=== PATIENT | male | born 1955 | race Caucasian/White ===

== ENCOUNTER 2021-08-03 09:07 | Outpatient (CLI) | payer OTHER, SELFPAY ==
--- NOTE | ~2021-08-03 | CT_ITS ---
EXAMINATION: CT abdomen pelvis w con DATE: 08/03/2021 10:02 INDICATION: Right lower quadrant abdominal pain for 3 weeks TECHNIQUE: Computed tomography (CT) of the abdomen and pelvis was performed with 100 cc Omnipaque 350 intravenous contrast. Automated exposure control and iterative reconstruction technique were employe d. Exam dose: 982.68 mGy-cm total exam DLP. COMPARISON: None. FINDINGS: The lung bases are clear of infiltrate or consolidation. Normal heart size. No pericardial or pleural effusion. Small sliding hiatal hernia. The liver, spleen, pancreas, and adrenal glands, bile ducts and pancreas are unremarkable. There are multiple bilateral renal cysts, including one larger left renal cysts measuring up to 5.5 c m. No urinary tract calculus or hydroureteronephrosis. Normal caliber and extensive calcification of the abdominal aorta. There is prominent calcification o f the renal arteries. There is extensive calcification of the iliac and femoral arteries. No intraperitoneal or retroperitoneal or pelvic mass lesion or adenopathy or ascites. Mild prostate enlargement and calcification. Moderate diffuse thickening of the urinary bladder wall, possibly due in part to relative evacuation. There is an irregular abscess cavity measuring up to 2.3 x 3.4 x 3.8 cm dimension in the right lower quadrant and the appendiceal area, likely a ruptured appendiceal abscess. There is prominent surround ing inflammatory soft tissue fat infiltration. Mild bilateral fat containing inguinal hernias. Diffuse idiopathic skeletal hyperostosis of the lower thoracic spine. No suspicious osteolytic or ost eoblastic lesions. IMPRESSION: Ruptured appendiceal abscess in the right lower quadrant Dr. Jaime telephoned the report on 08/03/2021 at [address] Roberson's lead recreation assistant's voicemail. An attempt to contact the cnc router operator was not allowed. Reviewed, dictated and finalized at Location A. Reviewed, dictated and finalized at location B. IMPRESSION: Ruptured appendiceal abscess in the right lower quadrant Dr. Jaime telephoned the report on 08/03/2021 [address] Roberson's a ssistant's voicemail. An attempt to contact the cnc router operator was not allowed.
[2021-08-03 09:35] LABS: Estimated Glomerular Filt Rate > 60
== END 2021-08-03 09:08 | disposition home or self-care (01) ==
LOC: CHSIMG 09:10
PROVIDERS: PCP Family Medicine; Visit Provider Family Medicine
DX: R10.31 Right lower quadrant pain (principal)
CPT/HCPCS: 74177; Q9967

== ENCOUNTER 2021-09-05 07:17 | Outpatient (CLI) | payer OTHER, SELFPAY ==
--- NOTE | ~2021-09-05 | CT_ITS ---
EXAMINATION: CT abdomen pelvis w con EXAM DATE: 09/05/2021 08:19 INDICATION: Perforated Appendicitis RLQ pain returned after appe abscess rupture 1mo ago. TECHNIQUE: Spiral CT of the abdomen and pelvis was performed following intravenous injection of 100 m L Omnipaque 350. Axial, coronal and sagittal images of the abdomen and pelvis were reviewed. The do se-length product (DLP) for this examination was 1034.47 mGy-cm. The exposure was tailored according to patient size (auto mA exposure control), and iterative reconstruction (ASIR) was used as addition al dose reduction technique. Comparison is made to prior examination from 08/03/2021. FINDINGS: There is pericecal pocket of fluid probably phlegmonous abscess measuring 2 x 4 cm (previou s dimensions 4.6 x 3.0 cm). This also appears to be contiguous to the tip of the appendix. The other portion of the appendix are unremarkable. The liver, spleen, adrenal glands and pancreas are unremarkable. Gallbladder is unremarkable. No bi liary obstruction. Portal and splenic veins are patent. Kidneys enhance symmetrically. There is no hydronephrosis. There is a 5.7 cm left renal cyst, multiple other smaller renal cysts bilaterally. The prostate is unremarkable. The bladder is unremarkable. There is no retroperitoneal or pelvic ly mphadenopathy. There is moderate scattered arteriosclerotic disease. The stomach and small bowel are unremarkable. There is expected amount of colonic stool. No free i ntraperitoneal gas. The heart is normal in size. There are no pericardial or pleural effusions. T he lung bases are unremarkable. There are no osteoblastic or osteolytic lesions identified. IMPRESSION: Interval decrease in size of abscess adjacent to appendix tip and cecum. Reviewed, dictated and finalized at location B. LEAD IMPRESSION: Interval decrease in size of abscess adjacent to appendix tip and c ecum.
[2021-09-05 07:41] LABS: Estimated Glomerular Filt Rate > 60
== END 2021-09-05 07:18 | disposition home or self-care (01) ==
LOC: CHSIMG 07:18
PROVIDERS: PCP Family Medicine
DX: K35.32 Acute appendicitis with perforation, localized peritonitis, and gangrene, without abscess (principal)
CPT/HCPCS: 74177; Q9967

== ENCOUNTER 2021-11-16 07:23 | Outpatient (CLI) | payer OTHER, SELFPAY ==
--- NOTE | ~2021-11-16 | CT_ITS ---
EXAMINATION: CT abdomen pelvis w con EXAM DATE: 11/16/2021 09:08 INDICATION: Abd. Pain, Appendix Abscess, Perforated Appendicitis hx appe perforation/abscess 06/2021, new RLQ pain x5 days . TECHNIQUE: Spiral CT of the abdomen and pelvis was performed following intravenous injection of 100 m L Omnipaque 350. Axial, coronal and sagittal images of the abdomen and pelvis were reviewed. The do se-length product (DLP) for this examination was 1105.53 mGy-cm. The exposure was tailored according to patient size (auto mA exposure control), and iterative reconstruction (ASIR) was used as addition al dose reduction technique. Comparison is made to prior examination from 09/05/2021. FINDINGS: Interval increase in size of right lower quadrant abscess compared to prior study, may have multiple loculations. Region measures about 6 x 3 cm, is adjacent to the appendix tip and also now c ontiguous to the bladder. There is moderate bladder wall thickening, similar to previous examination. The liver, spleen, adrenal glands and pancreas are unremarkable. Gallbladder is unremarkable. No bi liary obstruction. Portal and splenic veins are patent. Kidneys enhance symmetrically. There is no hydronephrosis. Scattered renal cysts, largest in the left kidney measuring 5 cm. The prostate is u nremarkable. There is no retroperitoneal or pelvic lymphadenopathy. There is moderate scattered ar teriosclerotic disease. Small bilateral inguinal fat-containing hernias. The stomach and small bowel are unremarkable. There is expected amount of colonic stool. No free i ntraperitoneal gas. The heart is normal in size. There are no pericardial or pleural effusions. T he lung bases are unremarkable. There are no osteoblastic or osteolytic lesions identified. IMPRESSION: Increase in size of right lower quadrant abscess which could be from perforated tip appen dicitis. Reviewed, dictated and finalized at location A. ANALYST REPORT WRITER IMPRESSION: Increase in size of right lower quadrant abscess which could be fro m perforated tip appendicitis.
[2021-11-16 07:37] LABS: Basophils Absolute Auto 0.07 K/mm3 (0.00-0.10); Basophils Percent Auto 0.5 % (0.0-1.0); Eosinophils Absolute Auto 0.11 K/mm3 (0.02-0.50); Eosinophils Percent Auto 0.7 % (1.0-6.0); Hematocrit 44.6 % (40.0-54.0); Hemoglobin 14.6 g/dL (14.0-18.0); Immature Granulocyte Absolute 0.07 K/mm3 (0.00-0.00); Immature Granulocyte Percent A 0.5 % (0.0-0.0); Lymphocytes Absolute Auto 2.26 K/mm3 (1.10-4.50); Lymphocytes Percent Auto 14.8 % (18.0-42.0); Mean Corpuscular HGB Conc 32.7 g/dL (32.0-36.0); Mean Corpuscular Hemoglobin 29.3 pg (27.0-31.0); Mean Corpuscular Volume 89.6 fL (78.0-102.0); Mean Platelet Volume 9.1 fl (8.7-11.0); Monocytes Absolute Auto 1.16 K/mm3 (0.10-0.90); Monocytes Percent Auto 7.6 % (2.0-11.0); Neutrophils Absolute Auto 11.7 K/mm3 (1.7-7.2); Neutrophils Percent Auto 75.9 % (50.0-70.0); Platelet Count Result 291 K/mm3 (150-420); Red Blood Count 4.98 M/mm3 (4.70-6.10); Red Cell Distribution Width 14.1 % (11.6-14.4); White Blood Count 15.3 K/mm3 (4.8-10.8)
[2021-11-16 07:50] LABS: Estimated Glomerular Filt Rate > 60
== END 2021-11-16 07:24 | disposition home or self-care (01) ==
LOC: CHSIMG 07:26
PROVIDERS: PCP Family Medicine
DX: R10.9 Unspecified abdominal pain (principal); K35.33 Acute appendicitis with perforation, localized peritonitis, and gangrene, with abscess; K35.32 Acute appendicitis with perforation, localized peritonitis, and gangrene, without abscess
CPT/HCPCS: 36415; 74177; 85025; Q9967

== ENCOUNTER 2023-01-03 15:04 | Outpatient (CLI) | payer OTHER, SELFPAY ==
[2023-01-03 15:17] LABS: Hematocrit 43.5 % (37.0-46.0); Hemoglobin 14.2 g/dL (12.4-15.3); Mean Corpuscular HGB Conc 32.6 g/dL (32.0-36.0); Mean Platelet Volume 9.1 fl (8.7-11.0); Platelet Count Result 233 K/mm3 (150-420); Red Blood Count 4.73 M/mm3 (4.70-6.10); Red Cell Distribution Width 13.6 % (11.6-14.4); White Blood Count 10.1 K/mm3 (4.8-10.8)
[2023-01-03 15:31] LABS: Prothrombin Time 10.7 Seconds (9.50-12.10)
[2023-01-03 16:04] LABS: Alanine Aminotransferase 29 U/L (16-63); Albumin Level 3.8 g/dL (3.4-5.0); Alkaline Phosphatase 40 U/L (46-116); Anion Gap 12 mmol/L (8-16); Aspartate Amino Transferase 15 U/L (15-37); Bilirubin,Total 0.5 mg/dL (0.00-1.00); Blood Urea Nitrogen 21 mg/dL (7-18); Carbon Dioxide 23 mmol/L (21-32); Chloride 101 mmol/L (98-108); Estimated Glomerular Filt Rate > 60; Glucose 111 mg/dL (70-99); Osmolality Calculated 286 mOsm/kg (285-295); Potassium 5.3 mmol/L (3.5-5.1); Sodium 136 mmol/L (136-145); Total Protein 7.4 g/dL (6.4-8.2)
[2023-01-03 16:23] LABS: CRP < 0.5 mg/dL (0.0-0.9)
[2023-01-03 16:28] LABS: Calcium 8.7 mg/dL (8.5-10.1)
== END 2023-01-03 15:05 | disposition home or self-care (01) ==
LOC: CHSLAB 15:05
PROVIDERS: PCP Family Medicine; Visit Provider Family Medicine
DX: R10.9 Unspecified abdominal pain (principal); R59.1 Generalized enlarged lymph nodes
CPT/HCPCS: 36415; 80053; 85027; 85610; 86140

== ENCOUNTER 2023-01-11 14:22 | Outpatient (CLI) | payer OTHER, SELFPAY ==
--- NOTE | ~2023-01-11 | US_ITS ---
EXAMINATION: US soft tissue head and neck DATE: 01/11/2023 14:43 INDICATION: Generalized enlarged lymph nodes. Episode of swelling of the left submandibular gland. TECHNIQUE: Multiple grayscale and Doppler ultrasound images of the bilateral submandibular regions we re obtained. COMPARISON: None FINDINGS: The submandibular glands appear normal and symmetric measuring 3.7 x 4.0 x 1.4 cm on the right and 3. 8 x 3.6 x 1.5 cm on the left. No pathologically enlarged lymphadenopathy or other abnormal masses or fluid collections. IMPRESSION: 1. Symmetric normal bilateral submandibular glands. Reviewed, dictated and finalized at location A.
== END 2023-01-11 14:23 | disposition home or self-care (01) ==
LOC: CHSIMG 14:24
PROVIDERS: PCP Family Medicine; Visit Provider Family Medicine
DX: R59.1 Generalized enlarged lymph nodes (principal)
CPT/HCPCS: 76536

== ENCOUNTER 2023-02-28 12:20 | Outpatient (CLI) | payer OTHER, SELFPAY ==
[2023-02-28 12:31] LABS: Appearance Urine Slightly Cloudy (Clear); Bilirubin Urine Negative (Negative); Blood Urine 3+ (Negative); Color Urine Light Yellow (Yellow); Glucose Urine UA Negative (Negative); Ketones Urine Negative (Negative); Leukocyte Esterase Ur 2+ (Negative); Nitrate Urine Positive (Negative); Protein Urine 2+ (Negative); Specific Grav Ur 1.025 (1.010-1.020); Urobilinogen Urine 0.2 mg/dL (0.2-1.0)
[2023-02-28 12:35] LABS: Hematocrit 42.2 % (37.0-46.0); Hemoglobin 13.5 g/dL (12.4-15.3); Mean Corpuscular Hemoglobin 30.1 pg (27.0-31.0); Mean Corpuscular Volume 94.2 fL (78.0-102.0); Mean Platelet Volume 9.2 fl (8.7-11.0); Platelet Count Result 263 K/mm3 (150-420); Red Blood Count 4.48 M/mm3 (4.70-6.10); White Blood Count 9.1 K/mm3 (4.8-10.8)
[2023-02-28 12:37] LABS: Add Urine Microscopic? YES; Bacteria Urine 2+ /hpf; RBC Urine 51-75 /hpf (0-2); Squamous Epithelial Cell Urine Occasional /hpf (Few)
[2023-02-28 13:19] LABS: Alanine Aminotransferase 26 U/L (16-63); Albumin Level 3.6 g/dL (3.4-5.0); Alkaline Phosphatase 38 U/L (46-116); Anion Gap 11 mmol/L (8-16); Aspartate Amino Transferase 13 U/L (15-37); Bilirubin,Total 0.2 mg/dL (0.00-1.00); Blood Urea Nitrogen 15 mg/dL (7-18); Calcium 8.9 mg/dL (8.5-10.1); Carbon Dioxide 25 mmol/L (21-32); Chloride 102 mmol/L (98-108); Estimated Glomerular Filt Rate > 60; Glucose 108 mg/dL (70-99); Osmolality Calculated 287 mOsm/kg (285-295); Sodium 138 mmol/L (136-145); Total Protein 7.4 g/dL (6.4-8.2); Uric Acid 4.9 mg/dL (3.5-7.2)
[2023-02-28 14:14] LABS: Hemoglobin A1C 5.9 % (<5.7)
== END 2023-02-28 12:21 | disposition home or self-care (01) ==
PROVIDERS: PCP Family Medicine; Visit Provider Nurse Practitioner Family
DX: R30.0 Dysuria (principal); E66.9 Obesity, unspecified
CPT/HCPCS: 36415; 80053; 81001; 83036; 84550; 85027

== ENCOUNTER 2023-03-06 12:53 | Outpatient (CLI) | payer OTHER, SELFPAY ==
--- NOTE | ~2023-03-06 | US_ITS ---
US renal BI 03/06/2023 13:17 Procedure: Realtime transabdominal ultrasound of the kidneys and bladder. Indication: UTI. Right renal mass. Comparison: No prior studies for comparison. Findings: Renal echotexture is normal bilaterally without hydronephrosis, contour deforming mass or r enal calculus. There are bilateral renal cyst measuring 1.9 cm on the right and 4.7 cm on the left. N o solid renal mass. The right kidney measures 12.1 cm and left kidney measures 11.3 cm. Bladder with in normal limits. Impression: 1: Bilateral renal cysts. Reviewed, dictated and finalized at location L. Impression: 1: Bilateral renal cysts.
== END 2023-03-06 12:54 | disposition home or self-care (01) ==
PROVIDERS: PCP Family Medicine; Visit Provider Nurse Practitioner Family
DX: R30.0 Dysuria (principal); N28.1 Cyst of kidney, acquired
CPT/HCPCS: 76775

== ENCOUNTER 2023-06-05 14:38 | Outpatient (CLI) | payer OTHER, SELFPAY ==
[2023-06-05 15:11] LABS: Hemoglobin A1C 5.1 % (<5.7)
== END 2023-06-05 14:39 | disposition home or self-care (01) ==
LOC: CHSLAB 14:40
PROVIDERS: PCP Family Medicine; Visit Provider Family Medicine
DX: E11.9 Type 2 diabetes mellitus without complications (principal)
CPT/HCPCS: 36415; 83036

== ENCOUNTER 2023-08-21 14:33 | Outpatient (CLI) | payer OTHER, SELFPAY ==
[2023-08-21 14:48] LABS: Basophils Absolute Auto 0.04 K/mm3 (0.00-0.10); Basophils Percent Auto 0.5 % (0.0-1.0); Eosinophils Absolute Auto 0.11 K/mm3 (0.02-0.50); Eosinophils Percent Auto 1.5 % (1.0-6.0); Hematocrit 42.2 % (37.0-46.0); Immature Granulocyte Absolute 0.03 K/mm3 (0.00-0.00); Immature Granulocyte Percent A 0.4 % (0.0-0.0); Mean Corpuscular HGB Conc 33.2 g/dL (32.0-36.0); Mean Corpuscular Hemoglobin 31.7 pg (27.0-31.0); Mean Corpuscular Volume 95.5 fL (78.0-102.0); Mean Platelet Volume 8.9 fl (8.7-11.0); Monocytes Absolute Auto 0.47 K/mm3 (0.10-0.90); Monocytes Percent Auto 6.3 % (2.0-11.0); Neutrophils Absolute Auto 4.8 K/mm3 (1.7-7.2); Neutrophils Percent Auto 63.3 % (50.0-70.0); Platelet Count Result 203 K/mm3 (150-420); Red Blood Count 4.42 M/mm3 (4.70-6.10); Red Cell Distribution Width 13.5 % (11.6-14.4); White Blood Count 7.5 K/mm3 (4.8-10.8)
[2023-08-21 15:14] LABS: Alanine Aminotransferase 30 U/L (16-63); Albumin Level 3.5 g/dL (3.4-5.0); Alkaline Phosphatase 34 U/L (46-116); Anion Gap 9 mmol/L (8-16); Aspartate Amino Transferase < 10 U/L (15-37); Bilirubin,Total 0.4 mg/dL (0.00-1.00); Blood Urea Nitrogen 17 mg/dL (7-18); Calcium 8.9 mg/dL (8.5-10.1); Carbon Dioxide 27 mmol/L (21-32); Chloride 103 mmol/L (98-108); Cholesterol 184 mg/dL (0-200); Estimated Glomerular Filt Rate > 60; Glucose 98 mg/dL (70-99); HDL Direct 50 mg/dL (40-60); LDL Cholesterol Calculated 114 mg/dL (<130); Osmolality Calculated 289 mOsm/kg (285-295); Potassium 4.9 mmol/L (3.5-5.1); Sodium 139 mmol/L (136-145); Total Protein 6.7 g/dL (6.4-8.2); Triglycerides 102 mg/dL (0-150)
== END 2023-08-21 14:34 | disposition home or self-care (01) ==
PROVIDERS: Nurse Practitioner Family; PCP Family Medicine; Visit Provider Family Medicine
DX: R73.03 Prediabetes (principal); I25.10 Atherosclerotic heart disease of native coronary artery without angina pectoris; G56.00 Carpal tunnel syndrome, unspecified upper limb
CPT/HCPCS: 36415; 80053; 80061; 83036; 85025

== ENCOUNTER 2023-10-24 13:03 | Outpatient (NON) | payer OTHER, SELFPAY ==
[2023-10-24 13:17] LABS: Appearance Urine Clear (Clear); Bilirubin Urine Negative (Negative); Blood Urine 2+ (Negative); Color Urine Light Yellow (Yellow); Glucose Urine UA Negative (Negative); Ketones Urine Negative (Negative); Leukocyte Esterase Ur Negative (Negative); Nitrate Urine Negative (Negative); Protein Urine Negative (Negative); Urobilinogen Urine 0.2 mg/dL (0.2-1.0)
[2023-10-24 13:24] LABS: Add Urine Microscopic? YES
[2023-10-24 13:25] LABS: Bacteria Urine Rare /hpf; Squamous Epithelial Cell Urine Occasional /hpf (Few); WBC Urine None seen /hpf (0-3)
== END 2023-10-24 13:04 | disposition home or self-care (01) ==
LOC: CHSLAB 13:04
PROVIDERS: Visit Provider Nurse Practitioner Family
DX: R39.9 Unspecified symptoms and signs involving the genitourinary system (principal)
CPT/HCPCS: 81001; 87086; 87088

== ENCOUNTER 2023-10-26 13:39 | Outpatient (CLI) | payer OTHER, SELFPAY ==
--- NOTE | ~2023-10-26 | CT_ITS ---
Non-contrast CT scan of the Abdomen and Pelvis Clinical indication: Hematuria Technique: 2.5 mm axial scans were obtained through the abdomen and pelvis without intravenous or or al contrast. Dose reduction technique was used on this scan by utilizing automated exposure control a nd iterative reconstruction technique. The dose-length product (DLP) was 1217.12 mGy-cm. COMPARISON: 11/16/2021 Findings: Images through the lung bases reveal no abnormalities. There is mild right hydroureteronephrosis. No left hydronephrosis. No radiopaque stones identified. S mall hyperdense right renal cyst present. Left renal cyst present. The liver, spleen, pancreas, gallbladder, and adrenals appear normal. There are atherosclerotic calci fications of the aorta. There is no evidence of bowel obstruction. Images through the pelvis were performed. There is no evidence of ascites or lymphadenopathy. Questio nable mild urinary bladder wall thickening. Prostate gland and seminal vesicles are unremarkable. Impression: Suspected mild urinary bladder wall thickening. Correlate for cystitis. Mild right hydroureteronephrosis. Correlate for recently passed stone. Reviewed, dictated and finalized at location . ND CUTTER Impression: Suspected mild urinary bladder wall thickening. Correlate for cystitis. Mild right hydroureteronephrosis. Correlate for recently passed stone.
== END 2023-10-26 13:40 | disposition home or self-care (01) ==
PROVIDERS: PCP Family Medicine; Visit Provider Nurse Practitioner Family
DX: R31.9 Hematuria, unspecified (principal); R39.9 Unspecified symptoms and signs involving the genitourinary system; N13.30 Unspecified hydronephrosis
CPT/HCPCS: 74176

== ENCOUNTER 2023-11-15 09:41 | Outpatient (CLI) | payer OTHER, SELFPAY ==
--- NOTE | ~2023-11-15 | US_ITS ---
US pelvic limited 11/15/2023 09:58 Indication: Evaluate for post void residual Procedure: Pelvic ultrasound utilizing transabdominal technique Comparison: No prior studies for comparison. Findings: Bladder is unremarkable without focal bladder wall thickening or mass. Prevoid volume is 1 44 cc. No post void residual. Impression: 1: Normal ultrasound of the bladder. No post void residual. Reviewed, dictated and finalized at location L. AR TEACHER Impression: 1: Normal ultrasound of the bladder. No post void residual.
== END 2023-11-15 09:42 | disposition home or self-care (01) ==
LOC: CHSIMG 09:43
PROVIDERS: PCP Family Medicine; Visit Provider Family Medicine
DX: R39.9 Unspecified symptoms and signs involving the genitourinary system (principal)
CPT/HCPCS: 76857

== ENCOUNTER 2023-12-12 09:16 | Outpatient (CLI) | payer OTHER, SELFPAY ==
--- NOTE | ~2023-12-12 | CT_ITS ---
EXAMINATION: CT abdomen pelvis wo/w con DATE: 12/12/2023 10:15 INDICATION: Penis pain for 4 weeks. TECHNIQUE: Computed tomography (CT) of the abdomen and pelvis was performed without and with intraven ous contrast using a total of 130 mL Omnipaque-350 intravenous contrast with a double-bolus technique for simultaneous opacification of the renal parenchyma and renal collecting system. Automated exposu re control and iterative reconstruction technique were employed. The dose-length product was 2283.36 mGy-cm. COMPARISON: CT abdomen and pelvis 10/26/2023 FINDINGS: The visualized portions of the lung bases demonstrate mild atelectasis. A calcified right lung nodule is consistent with old granulomatous disease. No pleural effusion. The heart size is normal. There a re coronary artery calcifications. No pericardial effusion. There are calcifications of the aortic va lve. The liver, gallbladder, spleen, pancreas, and adrenal glands are normal. There is a 15 mm hemorr hagic cyst in right kidney. There are simple cysts in the kidneys measuring up to 5.2 cm on the left. There is no urolithiasis. There is mild right hydronephrosis and hydroureter. The ureters are well o pacified. The bladder is distended. The prostate is mildly enlarged. The appendix is visualized. Ther e is calcified atherosclerosis of the aorta and many of the other arteries. There are no pathological ly enlarged lymph nodes. There is no free intraperitoneal fluid. There is mild chronic anterior wedgi ng of T11 and T12 vertebral bodies. There is prominent fat in the inguinal canals that may be hernias . There is moderate lumbar spondylosis. IMPRESSION: 1. Stable mild right hydronephrosis and hydroureter. 2. Prominent fat in the inguinal canals that may be hernias. Reviewed, dictated and finalized at location E. ING LURE ASSEMBLER
[2023-12-12 09:40] LABS: Estimated Glomerular Filt Rate > 60
== END 2023-12-12 09:17 | disposition home or self-care (01) ==
LOC: CHSIMG 09:17
PROVIDERS: PCP Family Medicine
DX: R31.9 Hematuria, unspecified (principal); N13.30 Unspecified hydronephrosis; N13.4 Hydroureter
CPT/HCPCS: 74178; Q9967

== ENCOUNTER 2023-12-24 10:35 | Outpatient (CLI) | payer OTHER, SELFPAY ==
--- NOTE | ~2023-12-24 | NM_ITS ---
EXAMINATION: BAILEY ring renal scan DATE: 12/24/2023 13:37 INDICATION: Right hydronephrosis TECHNIQUE: 9.3 mCi Tc-99m MAG3 was administered IV. 40 mg furosemide was administered IV immediately afterward. The patient was scanned in the supine position. A posterior abdominal radionuclide angiog kieran was obtained. A subsequent time course of static images of the kidneys, ureters, and bladder was obtained. COMPARISON: None FINDINGS: The posterior abdominal radionuclide angiogram and sequential static images show normal size, positio n, and morphology of the kidneys. Peak renal parenchymal uptake was 2.4 min in left kidney and 3.4 mi n in right kidney (normal peak 3-5 minutes). The relative early renal uptake was 55% on the left and 35% on the right (<40% is abnormal). No abnormalities of the ureters or bladder are seen. T1/2 for clearance of activity from the left kidney and proximal collecting system was 7 minutes. T1/2 for clearance of activity from the right kidney and proximal collecting system was 10 minutes. Notes on interpretation: T1/2 <10 minutes is normal, 10-15 minutes is low grade obstruction of questi onable clinical significance, 15-20 minutes is partial obstruction that is likely clinically signific ant, >20 minutes is high grade obstruction. Note that false positives may be seen with supine positio [place], dehydration, severely dilated nonobstructed kidney, atonic collecting system, poor renal functi on, and chronic furosemide use. IMPRESSION: 1. Symmetric kidney function. 2. No delay in contrast clearance from the left kidney suggest fixed obstruction. 2. Activity clearance from the right kidney at the upper limits of normal, borderline for low-grade o bstruction of doubtful clinical significance. Reviewed, dictated and finalized at location A. PER BRUSH MAKER MACHINE IMPRESSION: 1. Symmetric kidney function. 2. No delay in contrast clearance from the left kidney suggest fixed obstructi on. 2. Activity clearance from the right kidney at the upper limits of normal, bord gerald for low-grade obstruction of doubtful clinical significance.
[2023-12-24 11:53] LABS: Prostate Specific Antigen 0.7 ng/mL (< OR = 4.0)
== END 2023-12-24 10:36 | disposition home or self-care (01) ==
LOC: CHSIMG 10:37
PROVIDERS: PCP Family Medicine
DX: N40.0 Benign prostatic hyperplasia without lower urinary tract symptoms (principal); N13.30 Unspecified hydronephrosis
CPT/HCPCS: 36415; 78708; 84153; A9562; J1940

== ENCOUNTER 2025-01-12 11:06 | Outpatient (CLI) | payer OTHER, SELFPAY ==
--- NOTE | ~2025-01-12 | XR_ITS ---
EXAMINATION: [id number] DATE: 01/12/2025 11:21 INDICATION: Left knee pain. TECHNIQUE: 2 views of left knee were obtained. COMPARISON: None. FINDINGS: There is varus angulation at the knee. No fracture. There is moderate osteoarthritis of med ial compartment and mild osteoarthritis of lateral and patellofemoral compartments. There is a small knee joint effusion. IMPRESSION: 1. Moderate left knee osteoarthritis. 2. Small left knee joint effusion. Reviewed, dictated and finalized at location A.
--- NOTE | ~2025-01-12 | XR_ITS ---
EXAMINATION: [id number] DATE: 01/12/2025 11:21 INDICATION: Right knee pain. TECHNIQUE: 2 views of right knee were obtained. COMPARISON: None. FINDINGS: Alignment is normal. No fracture. There is mild tricompartmental osteoarthritis. No knee tavo int effusion. IMPRESSION: 1. Mild right knee osteoarthritis. Reviewed, dictated and finalized at location A.
--- OUTSIDE RECORDS SUMMARY | 2025-01-12 13:13 | XMS_ITS | Clinical Summary ---
Author Organization [facility] Address [address] [place] [address] Care Team Providers Care Skidder Name Role Phone Pritesh Roberson DO Primary Care Provider Pritesh Roberson DO Unavailable No, Physician Unavailable Nahed Melendez MD Unavailable Allergies No known active allergies Medications lisinopriL (PRINIVIL,ZESTRIL ) 20 mg tablet Take 20 mg by mouth daily Active cilostazoL (PLETAL) 100 mg tabletIndications :Intermittent Claudication Take 100 mg by mouth daily Active atorvastatin (LIPITOR) 40 mg tablet Take 40 mg by mouth daily Active omeprazole (PriLOSEC) 40 mg capsule Take 40 mg by mouth daily Active aspirin 81 mg enteric coated tablet Take 1 tablet (81 mg total) by mouth daily 30 tablet 1 Active clopidogreL (PLAVIX) 75 mg tablet Take 1 tablet (75 mg total) by mouth daily 30 tablet 1 Active metoprolol tartrate (LOPRESSOR) 25 mg immediate release tablet Take 0.5 tablets (12.5 mg total) by mouth 2 (two) times a day 30 tablet 1 Active nitroglycerin (NITROSTAT) 0.[address] 1 tablet (0.4 mg total) under the tongue every 5 (five) minutes as needed for chest pain 90 tablet 1 Active tadalafiL (CIALIS) 20 mg tablet 1 Active Active Problems Problem Noted Date Diagnosed Date Coronary artery disease invo lving [place] coronary artery of [place] heart without angina pectoris 07/01/2021 Assessment & Plan (09/30/2021 4:08 PM CARRIER PACKER): No symptoms of myocardial ischemia. 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 Continue metoprolol 12.5 mg b.i.d.. Assessment & Plan (07/01/2021 1:02 PM CDT): Single-vessel coronary artery disease involving the right coronary artery. He is asymptomatic on medical therapy and has complied with instructions to stop smoking. He is doing well. He can continue exerting himself without limitations and I will see him again in three months. NSTEMI (non-ST elevated myocardial infarction) 0 05/28/2021 Assessment & Plan (05/31/2021 12:01 PM CDT): Initial non STEMI with subsequent procedural STEMI, all remarkably well tolerated. Echo Doppler looks good. No arrhythmias on telemetry. Will increase activity and if he has no exertional chest discomfort I am fine with his being discharged today on dual anti-platelet, beta-misty, statin, AB-inhibitor therapy, and sublingual nitroglycerin. Suspect he will need something for anxiety and a nicotine replacement as well. I will see him in the office in three weeks; he and know to call for an appointment. Primary hypertension 05/28/2021 Assessment & Plan (09/30/2021 4:09 PM CARRIER PACKER): Blood pressure is well controlled on lisinopril 20 mg daily and metoprolol 12.5 mg b.i.d., both of which he should continue. Assessment & Plan (07/01/2021 1:02 PM CDT): Blood pressure is adequately controlled on current regimen. No change was made. Assessment & Plan (05/29/2021 9:16 AM CDT): Blood pressure is adequately controlled on current regimen. No change was made. PAD (peripheral artery disease) 05/28/2021 Hyperlipidemia 05/28/2021 Assessment & Plan (09/30/2021 4:09 PM CARRIER PACKER): Continue atorvastatin 40 mg daily. Assessment & Plan (07/01/2021 1:02 PM CDT): Continue high-intensity statin therapy. Assessment & Plan (05/29/2021 9:16 AM CDT): On chronic lipid lowering therapy with good control. No changes made. Tobacco abuse 05/28/2021 Tachycardia 05/28/2021 Gastroesophageal reflux disease without esophagi tis 05/28/2021 Medical History Medical History Date Comments Hypertension Hyperlipidemia GERD (gastroesophageal reflux disease) PAD (peripheral artery disease) Tobacco abuse Family History Medical History Relation Name Comments Early Neg Hx Heart attack Neg Hx Heart disease Neg Hx Hyperlipidemia Neg Hx Hypertension Neg Hx Relation Name Status Comments Father of old age . No medical problems. Mother of old age . No medical problems. Social History Tobacco Use Types Packs/Day Years Used Date Smoking Tobacco: Former Cigarettes 1.5 50 0 06/28/1971 - 06/28/2021 Smokeless Tobacco: Never Tobacco Cessation:Ready to Q uit: No; Counseling Given: Yes Personal Safety Answer Date Recorded Getting School Help Needed Not on file 10/01 Sex and Gender Information Value Date Recorded Sex Assigned at Not on file Legal Sex Male 8:30 AM CARRIER PACKER Gender Identity Male 07/01/2021 12:16 PM CDT Sexual Orientation Not on file Obstetrics History Last Filed Vital Signs Vital Sign Reading Time Taken Comments Blood Pressure 112/64 09/30/2021 12:03 PM CARRIER PACKER Pulse 71 09/30/2021 12:03 PM CARRIER PACKER Temperature 36.7 C (98 F) 05/31/2021 12:40 PM CDT Respiratory Rate 18 05/31/2021 12:40 PM CDT Oxygen Saturation 98% 09/30/2021 12:03 PM CARRIER PACKER Inhaled Oxygen Concentration - - Weight 97.1 kg (214 lb) 09/30/2021 12:03 PM CARRIER PACKER Height 172.7 cm (5' 8 ) 09/30/2021 12:03 PM CARRIER PACKER Body Mass Index 32.54 09/30/2021 12:03 PM CARRIER PACKER Plan of Treatment Not on file Medical Devices Implanted Type Area Ground Crew Linesman Device Identifier Shelf Expiration Date Model / Serial / Lot [employer] [id number] Synergy Xd Monorail 3mm 16mm 144cm Delivery System 1 Access Port - [id number] - [id number] Implanted:Qty: 1 on 05/30/2021 by Alexander Odom MD at [facility] Stent N/A: Coronary [employer] 03/07/2023 [id number] / [id number] / [id number] Description:[facility] Insurance [employer] [id number] [employer] [id number] Advance Directives For more information, please contact: [phone] Documents on File Type Date Recorded Patient Bolt Labeler Expl anation ADVANCE DIRECTIVE 06/01/2021 12:21 PM Bess r of Instrument Technician Apprentice-Medical * Full Code (Latest Code Status on File) Date Activated Date Inactivated Comments 05/30/2021 9:33 AM 05/31/2021 6:47 PM * Full Code Date Activated Date Inactivated Comments 05/28/2021 6:56 PM 05/30/2021 9:33 AM Care Teams Skidder Relationship Specialty Start Date End Date Pritesh Roberson DO [address] [place] [address] PCP - General Family Medicine 06/01/21 Pritesh Roberson DO [address] [place] [address] Family Medicine 06/01/21 No, Physician 05/31/21 Nahed Melendez MD [address] [place] [address] Consulting Physician Cardiology 05/31/21
--- OUTSIDE RECORDS SUMMARY | 2025-01-12 13:13 | XMS_ITS | Encounter Summary ---
Author Organization [facility] Address [facility] [place] [address] Care Team Providers Care Medicaid Biller Name Role Phone Pritesh Roberson DO Primary Care Provider [phone] Zena Castillo MD Unavailable Unavailabl Mg Wills MD Unavailable [phone] Hillary Arnold MD Unavailable Encounter Details Date Type Department Care Team (Late Contact Info) Description 11/07/2021 MyChart Message Enc [facility] [address], [place] [address] Juana Lechuga, [address] [place] [address] Visit Follow Up Social History Tobacco Use Types Packs/Day Years Used Date Smoking Tobacco: Every Day Cigarettes 1 50 Smokeless Tobacco: Never Alcohol Use Standard Drinks/Week Comments Not Currently 0 (1 standard drink = 0.6 oz pur e alcohol) Sex and Gender Information Value Date Recorded Sex Assigned at Not on file Legal Sex Male 2:50 AM CDT Gender Identity Not on file Sexual Orientation Not on file COVID-19 Exposure Response Date Recorded In the last month, have you been in contact with someone who was confirmed or suspected to have Coronavirus / COVID-19? No / Unsure 11/09/2021 10:16 AM PATIENT SUPPORT REPRESENTATIVE documented as of this encounter Plan of Treatment Upcoming Encounters Date Type Department Care Team (Late Contact Info) Description 01/14/2025 11:15 AM CDT Office Visit [facility] [address] [facility] [address] [place] [address] Cheri Soto PA [address] [facility] [address] [place] [address] 09/02/2025 1:00 PM PATIENT SUPPORT REPRESENTATIVE Appointment [facility] [address] [place] [address] Hillary Arnold MD [address] [place] [address] 09/02/2025 2:00 PM PATIENT SUPPORT REPRESENTATIVE Appointment [facility] [address] [place] [address] Hillary Arnold MD [address] [place] [address] 09/10/2025 2:30 PM PATIENT SUPPORT REPRESENTATIVE Office Visit [facility] [address] Hillary Arnold MD [address] [place] [address] documented as of this encounter Visit Diagnoses Not on filedocumented in this encounter Care Teams Medicaid Biller Relationship Specialty Start Date End Date Pritesh Roberson DO [address] [place] [address] PCP - General FAMILY PRACTICE 12/22/20 Zena Castillo MD [address] [place] [address] Consulting Physician CARDIOVASCULAR DISEASE 01/02/22 Mg Childers MD [address] [place] [phone] Consulting Physician ORTHOPAEDIC SURGERY 08/09/23 Hillary Arnold MD [address] [place] [address] Consulting Physician CARDIOVASCULAR DISEASE 04/27/24 documented as of this encounter
--- OUTSIDE RECORDS SUMMARY | 2025-01-12 13:13 | XMS_ITS ---
Author Organization Unknown Address [id number] [place] [phone] Phone Care Team Providers Care Coroner Transport Technician Name Role Phone KENDALL ALVAREZ Attending Unavailable JARED LACEY Primary Unavailable Immunization Immunization Date Status Additional Notes Code Code System pneumococcal polysaccharide PPV23 10/01/2019 Completed 33 CVX Influenza, high-dose, trivalent, PF 09/08/2024 Completed 135 CVX Influenza, split virus, trivalent, preservative 08/22/2021 Completed 141 CVX Influenza, split virus, trivalent, preservative 08/18/2022 Completed 141 CVX Influenza, split virus, quadrivalent, PF 09/21/2020 Completed 150 CVX zoster recombinant 09/19/2021 Completed 187 CVX zoster recombinant 02/06/2022 Completed 187 CVX Influenza, adjuvanted, quadrivalent, PF 07/23/2023 Completed 205 CVX COVID-19, mRNA, LNP-S, PF, 3 0 mcg/0.3 mL dose 11/26/2020 Completed 208 CVX COVID-19, mRNA, LNP-S, PF, 3 0 mcg/0.3 mL dose 12/17/2020 Completed 208 CVX COVID-19, mRNA, LNP-S, PF, 3 0 mcg/0.3 mL dose 09/19/2021 Completed 208 CVX Pneumococcal conjugate PCV20 , polysaccharide [id number] conjugate, adjuvant, PF 08/23/2023 Completed 216 CVX COVID-19, mRNA, LNP-S, PF, 3 0 mcg/0.3 mL dose, wang-sucrose 02/06/2022 Completed 217 CVX COVID-19, mRNA, LNP-S, bivalent, PF, 30 mcg/0.3 mL dose 09/04/2022 Completed 300 CVX COVID-19, mRNA, LNP-S, PF, wang-sucrose, 30 mcg/0.3 mL 09/08/2024 Completed 309 CVX COVID-19, mRNA, LNP-S, PF, 5 0 mcg/0.5 mL 08/23/2023 Completed 312 CVX Social History Type Status Start Date End Date Code Code Syst em Smoking History Current every day smoker [id number] SNOMED CT Sex Male Medications Medication Start Date End Date Route Frequency Dose Code Code System Medication Instructions Home Meds Aspirin 325MG Oral Tablet, Enteric Coated 08/28/2023 Unknown ORAL ONCE A DAY 325 MILLIGRAMS [id number] RxNorm TAKE 325 MILLIGRAMS ORAL ONCE A DAY Atorvastatin Calcium 40MG Oral Tablet 08/28/2023 Unknown ORAL ONCE A DAY 40 MILLIGRAMS 003413 RxNorm TAKE 40 MILLIGRAMS ORAL ONCE A DAY Cilostazol 100MG Oral Tablet 08/28/2023 Unknown ORAL TWICE A DAY 100 MILLIGRAMS 909624 RxNorm TAKE 100 MILLIGRAMS ORAL TWICE A DAY Lisinopril 20MG Oral Tablet 08/28/2023 Unknown ORAL ONCE A DAY 20 MILLIGRAMS 135282 RxNorm TAKE 20 MILLIGRAMS ORAL ONCE A DAY Metamucil Oral Capsule 08/28/2023 Unknown ORAL 1 unit(s) RxNorm TAKE 1 EACH ORAL Metoprolol Tartrate 25MG Oral Tablet 08/28/2023 Unknown ORAL TWICE A DAY 25 MILLIGRAMS 771355 RxNorm TAKE 25 MILLIGRAMS ORAL TWICE A DAY Omeprazole 40MG Oral Capsule, Delayed Release 08/28/2023 Unknown ORAL ONCE A DAY 40 MILLIGRAMS 889907 RxNorm TAKE 40 MILLIGRAMS ORAL ONCE A DAY Viagra 100MG Oral Tablet 08/28/2023 Unknown ORAL NEEDED 100 MILLIGRAMS 132707 RxNorm TAKE 100 MILLIGRAMS ORAL NEEDED Hospital Discharge Instructions Should you have any questions prior to discharge, please contact a member of your healthcare team. If you have left the hospital and have any questions, please contact your primary care physician. Reason For Referral No Data Found Procedures Procedure Name Date Status Code Code Syste m Simple repair of superficial wounds of scalp, neck, axillae, external vinnie 10/28/2024 completed 36739 CPT Allergies and Adverse Reactions Allergy Substance Reaction Severity Start Date Concern Status Co de Code System No Known Drug Allergies Active [id number] SNOMED-CT Plan of Treatment No Data Found Encounters Encounter Diagnosis Start Date Code Code Sys tem Laceration without foreign b dejon, left lower leg, initial encounter 10/28/2024 SNOMED-CT Personal Care Team Section Performer Name Performer Role Active Date Inactive DEEPTHI Castillo PCP - Primary care physician 7
--- OUTSIDE RECORDS SUMMARY | 2025-01-12 13:13 | XMS_ITS | Clinical Summary ---
Author Organization [facility] Address [address] [place] [address] Care Team Providers Care Optimization Consultant Name Role Phone Pritesh Roberson DO Primary Care Provider [phone] Childers MD Unavailable [phone] Hillary Arnold MD Unavailable Allergies No known active allergies Medications atorvastatin 40 MG tablet 11/13/2020 Active cilostazol 100 MG tablet 10/24/2020 Active lisinopril 20 MG tablet 11/13/2020 Active diclofenac sodium 1 % gel 09/21/2020 Acti ve omeprazole 10 MG capsule Take 4 capsules (40 mg total) by mouth daily. Active aspirin EC (ECOTRIN) 81 MG tablet Take 1 tablet (81 mg total) by mouth daily. 90 tablet 4 08/10/2022 Active metoprolol succinate ER (TOPROL-XL) 25 MG 24 hr tablet Take 1 tablet (25 mg total) by mouth daily. 90 tablet 3 08/10/2023 Active tadalafil (CIALIS) 5 MG tablet 12/21/2023 Active Active Problems Problem Noted Date Diagnosed Date Coronary artery disease invo lving [place] coronary artery of [place] heart without angina pectoris 07/01/2021 Overview (01/26/2022): Last Assessment & Plan: No symptoms of myocardial ischemia. 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 Continue metoprolol 12.5 mg b.i.d.. Gastroesophageal reflux disease without esophagi tis 05/28/2021 Hyperlipidemia 05/28/2021 Overview (01/26/2022): Last Assessment & Plan: Continue atorvastatin 40 mg daily. NSTEMI (non-ST elevated myoc ardial infarction) ([facility]) 05/28/2021 Overview (01/26/2022): Last Assessment & Plan: Initial non STEMI with subsequent procedural STEMI, [...] and know to call for an appointment. PAD (peripheral artery disease) 05/28/2021 Primary hypertension 05/28/2021 Overview (01/26/2022): Last Assessment & Plan: Blood pressure is well controlled on lisinopril 20 mg daily and metoprolol 12.5 mg b.i.d., both of which he should continue. Tobacco abuse 05/28/2021 Carpal tunnel syndrome of right wrist 12/23/2020 Carpal tunnel syndrome of left wrist 12/23/2020 Resolved Problems Problem Noted Date Diagnosed Date Resolved Date Trochanteric bursitis of right hip 11/09/2021 08/19/2023 Tachycardia 05/28/2021 08/19/2023 Primary osteoarthritis of fi rst carpometacarpal joint of left hand 12/23/202008/19 Primary osteoarthritis of fi rst carpometacarpal joint of right hand 12/23/202007/23 Family History Medical History Relation Comments No Known Problems Father No Known Problems Maternal Grandfather No Known Problems Maternal Grandmother Hypertension Mother No Known Problems Paternal Grandfather No Known Problems Paternal Grandmother Relation Status Comments Father Maternal Grandfather Maternal Grandmother Mother Paternal Grandfather Paternal Grandmother Social History Tobacco Use Types Packs/Day Years Used Date Smoking Tobacco: Former Cigarettes 1 50 0 05/1972 - 05/2022 Smokeless Tobacco: Never Alcohol Use Standard Drinks/Week Comments Not Currently 0 (1 standard drink = 0.6 oz pur e alcohol) Sex and Gender Information Value Date Recorded Sex Assigned at Not on file Legal Sex Male 2:50 AM CDT Gender Identity Not on file Sexual Orientation Not on file Last Filed Vital Signs Vital Sign Reading Time Taken Comments Blood Pressure 126/77 07/29/2024 9:16 AM CDT Pulse 84 07/29/2024 9:16 AM CDT Temperature 36.8 C (98.2 F) 08/03/2021 9:37 PM CDT Respiratory Rate 22 07/29/2024 9:16 AM CDT Oxygen Saturation 96% 07/29/2024 9:16 AM CDT Inhaled Oxygen Concentration - - Weight 97.5 kg (215 lb) 07/29/2024 9:16 AM CDT Height 170.2 cm (5' 7 ) 07/29/2024 9:16 AM CDT Body Mass Index 33.67 07/29/2024 9:16 AM CDT Plan of Treatment Upcoming Encounters Date Type Department Care Team (Late st Contact Info) Description 01/14/2025 11:15 AM CDT Office Visit [facility] [address] [place] [address] Cheri Soto PA [address] [place] [address] 09/02/2025 1:00 PM [address] [facility] [facility] [place] [address] Hillary Arnold MD [address] [place] [address] 09/02/2025 2:00 [address] [facility] [address] [place] [address] Hillary Arnold MD [address] [place], [place] [phone] 09/10/2025 2:30 PM PILLOWCASE CLEANER Office Visit [facility] [address] [phone] Hillary Arnold MD [address] [place], [place] [id number] Health Maintenance Due Date Last Done Comments ASCVD LDL 1957 ASCVD Statin 1957 Colorectal Cancer Screening Colonoscopy (10 Years) 1957 Hepatitis C 1975 DTaP, Tdap and Td Vaccines (1 - Tdap) 1976 Lung Cancer Screening 2007 RSV Immunization or 60+ Years (1 - Risk 60-74 years 1-dose series) 2017 AAA SCREENING 2022 COVID-19 Vaccine ( season) 2024 08/23/2023, 09/04/2022, 02/06/2022, Additional history exists Influenza Adult (#1) 2024 08/18/2022, 08/22/2021, 09/21/2020 Zoster Vaccines Completed 02/06/2022, 09/19/2021 Pneumococcal Vaccine: 65+ Years Completed 08/23/2023, 10/01/2019 Meningococcal B Vaccine Aged Out No l onger eligible based on patient's age to complete this topic Meningococcal Vaccine Aged Out No ginny rowan eligible based on patient's age to complete this topic RSV Immunizations Under 20 Months Aged Out No longer eligible based on patient's age to complete this topic Insurance [employer] [facility] MEDICARE PART A Care Teams Optimization Consultant Relationship Specialty Start Date End Date Pritesh Roberson DO [address] [place] [address] PCP - General FAMILY PRACTICE 12/22/20 Mg Childers MD [address] [place] [phone] Consulting Physician ORTHOPAEDIC SURGERY 08/09/23 Hillary Arnold MD [address] [place] [address] Consulting Physician CARDIOVASCULAR DISEASE 04/27/24
--- OUTSIDE RECORDS SUMMARY | 2025-01-12 13:13 | XMS_ITS | Referral Summary ---
Author Organization [facility] Address [address] [place] [address] Care Team Providers Care Switchboard And Control Room Operator Name Role Phone Pritesh Roberson DO Primary [...] Diagnosed Date Coronary artery disease invo lving [place] coronary artery of [place] heart without angina pectoris 07/01/2021 Assessment & Plan (09/30/2021 4:08 PM BENCH TOOL MAKER): No symptoms of myocardial ischemia. He is [...] 05/28/2021 Assessment & Plan (09/30/2021 4:09 PM BENCH TOOL MAKER): Blood pressure is well controlled on lisinopril [...] 05/28/2021 Assessment & Plan (09/30/2021 4:09 PM BENCH TOOL MAKER): Continue atorvastatin 40 mg daily. Assessment & Plan (07/01/2021 1:02 PM CDT): Continue high-intensity statin therapy. Assessment & Plan (05/29/2021 9:16 AM CDT): On chronic lipid lowering therapy with good control. No changes made. Tobacco abuse 05/28/2021 Tachycardia 05/28/2021 Gastroesophageal reflux disease without esophagi tis 05/28/2021 Social History Tobacco Use Types Packs/Day Years Used Date Smoking Tobacco: Former Cigarettes 1.5 50 0 06/28/1971 - 06/28/2021 Smokeless Tobacco: Never Tobacco Cessation:Ready to Q uit: No; Counseling Given: Yes Personal Safety Answer Date Recorded Getting School Help Needed Not on file 10/01 Sex and Gender Information Value Date Recorded Sex Assigned at Not on file Legal Sex Male 8:30 AM BENCH TOOL MAKER Gender Identity Male 07/01/2021 12:16 PM CDT Sexual Orientation Not on file Last Filed Vital Signs Vital Sign Reading Time Taken Comments Blood Pressure 112/64 09/30/2021 12:03 PM BENCH TOOL MAKER Pulse 71 09/30/2021 12:03 PM BENCH TOOL MAKER Temperature 36.7 C (98 F) 05/31/2021 12:40 PM CDT Respiratory Rate 18 05/31/2021 12:40 PM CDT Oxygen Saturation 98% 09/30/2021 12:03 PM BENCH TOOL MAKER Inhaled Oxygen Concentration - - Weight 97.1 kg (214 lb) 09/30/2021 12:03 PM BENCH TOOL MAKER Height 172.7 cm (5' 8 ) 09/30/2021 12:03 PM BENCH TOOL MAKER Body Mass Index 32.54 09/30/2021 12:03 PM BENCH TOOL MAKER Plan of Treatment Not on file Medical Devices Implanted Type Area Hair Designer Device Identifier Shelf Expiration Date Model / Serial / Lot [employer] [id number] Synergy Xd Monorail 3mm 16mm 144cm Delivery System 1 Access Port - [id number] - [id number] Implanted:Qty: 1 on 05/30/2021 by Alexander Odom MD at [facility] Stent N/A: Coronary [employer] 03/07/2023 [id number] / [id number] / [id number] Description:Mid [facility] Insurance [facility] [id number] [facility] [id number] Advance Directives For more information, please contact: [phone] Documents on File Type Date Recorded Patient Friction Saw Operator Expl anation ADVANCE DIRECTIVE 06/01/2021 12:21 PM Bess r of Smoke Jumper Supervisor-Medical * Full Code (Latest Code Status on File) Date Activated Date Inactivated Comments 05/30/2021 9:33 AM 05/31/2021 6:47 PM * Full Code Date Activated Date Inactivated Comments 05/28/2021 6:56 PM 05/30/2021 9:33 AM Care Teams Switchboard And Control Room Operator Relationship Specialty Start Date End Date Pritesh Roberson DO [address] [place] [address] PCP - General Family Medicine 06/01/21 Pritesh Roberson DO [address] [place] [address] Family Medicine 06/01/21 No, Physician 05/31/21 Nahed Melendez MD [address] [facility] [address] [place] [address] Consulting Physician Cardiology 05/31/21
--- OUTSIDE RECORDS SUMMARY | 2025-01-12 13:13 | XMS_ITS ---
Author Organization Unknown Address [address] [place] [address] [phone] Phone Care Team Providers Care Material Processor Name Role Phone ILANA GUEVARA Attending Unavailable JARED LACEY Primary Unavailable Immunization [...] 208 CVX Pneumococcal conjugate PCV20 , polysaccharide [id number] conjugate, adjuvant, PF 08/23/2023 Completed 216 CVX [...] em Smoking History Current every day smoker [id number] SNOMED CT Sex Male Medications Medication Start Date End Date Route Frequency Dose Code Code System Medication Instructions Home Meds Aspirin 325MG Oral Tablet, Enteric Coated 08/28/2023 Unknown ORAL ONCE A DAY 325 MILLIGRAMS 717727 RxNorm TAKE 325 MILLIGRAMS ORAL ONCE A DAY Atorvastatin Calcium 40MG Oral Tablet 08/28/2023 Unknown ORAL ONCE A DAY 40 MILLIGRAMS 731422 RxNorm TAKE 40 MILLIGRAMS ORAL ONCE A DAY Cilostazol 100MG Oral Tablet 08/28/2023 Unknown ORAL TWICE A DAY 100 MILLIGRAMS 948648 RxNorm TAKE 100 MILLIGRAMS ORAL TWICE A DAY Lisinopril 20MG Oral Tablet 08/28/2023 Unknown ORAL ONCE A DAY 20 MILLIGRAMS 328188 RxNorm TAKE 20 MILLIGRAMS ORAL ONCE A DAY Metamucil Oral Capsule 08/28/2023 Unknown ORAL 1 unit(s) RxNorm TAKE 1 EACH ORAL Metoprolol Tartrate 25MG Oral Tablet 08/28/2023 Unknown ORAL TWICE A DAY 25 MILLIGRAMS 830101 RxNorm TAKE 25 MILLIGRAMS ORAL TWICE A DAY Omeprazole 40MG Oral Capsule, Delayed Release 08/28/2023 Unknown ORAL ONCE A DAY 40 MILLIGRAMS 995656 RxNorm TAKE 40 MILLIGRAMS ORAL ONCE A DAY Viagra 100MG Oral Tablet 08/28/2023 Unknown ORAL NEEDED 100 MILLIGRAMS 568900 RxNorm TAKE 100 MILLIGRAMS ORAL NEEDED Hospital Discharge Instructions Should you have any questions prior to discharge, please contact a member of your healthcare team. If you have left the hospital and have any questions, please contact your primary care physician. Reason For Referral No Data Found Allergies and Adverse Reactions Allergy Substance Reaction Severity Start Date Concern Status Co de Code System No Known Drug Allergies Active [id number] SNOMED-CT Plan of Treatment No Data Found Encounters Encounter Diagnosis Start Date Code Code Sys tem Mixed hyperlipidemia 08/09/2023 [id number] SNOMED- CT Personal Care Team Section Performer Name Performer Role Active Date Inactive DEEPTHI Castillo PCP - Primary care physician 7
--- OUTSIDE RECORDS SUMMARY | 2025-01-12 13:14 | XMS_ITS ---
Author Organization Unknown Address [address] [place] [phone] Phone Care Team Providers Care Middle Card Tender Name Role Phone KAYLA CEE Attending Unavailable JARED LACEY Primary Unavailable Immunization [...] 208 CVX Pneumococcal conjugate PCV20 , polysaccharide [id number] conjugate, adjuvant, PF 08/23/2023 Completed 216 CVX [...] em Smoking History Current every day smoker [id number] SNOMED CT Sex Male Medications Medication Start Date End Date Route Frequency Dose Code Code System Medication Instructions Home Meds Aspirin 325MG Oral Tablet, Enteric Coated 08/28/2023 Unknown ORAL ONCE A DAY 325 MILLIGRAMS 450797 RxNorm TAKE 325 MILLIGRAMS ORAL ONCE A DAY Atorvastatin Calcium 40MG Oral Tablet 08/28/2023 Unknown ORAL ONCE A DAY 40 MILLIGRAMS 351900 RxNorm TAKE 40 MILLIGRAMS ORAL ONCE A DAY Cilostazol 100MG Oral Tablet 08/28/2023 Unknown ORAL TWICE A DAY 100 MILLIGRAMS 439522 RxNorm TAKE 100 MILLIGRAMS ORAL TWICE A DAY Lisinopril 20MG Oral Tablet 08/28/2023 Unknown ORAL ONCE A DAY 20 MILLIGRAMS 029345 RxNorm TAKE 20 MILLIGRAMS ORAL ONCE A DAY Metamucil Oral Capsule 08/28/2023 Unknown ORAL 1 unit(s) RxNorm TAKE 1 EACH ORAL Metoprolol Tartrate 25MG Oral Tablet 08/28/2023 Unknown ORAL TWICE A DAY 25 MILLIGRAMS 410974 RxNorm TAKE 25 MILLIGRAMS ORAL TWICE A DAY Omeprazole 40MG Oral Capsule, Delayed Release 08/28/2023 Unknown ORAL ONCE A DAY 40 MILLIGRAMS 716043 RxNorm TAKE 40 MILLIGRAMS ORAL ONCE A DAY Viagra 100MG Oral Tablet 08/28/2023 Unknown ORAL NEEDED 100 MILLIGRAMS 382795 RxNorm TAKE 100 MILLIGRAMS ORAL NEEDED Hospital [...] Code System No Known Drug Allergies Active 907131502 SNOMED-CT Plan of Treatment No Data Found Encounters Encounter Diagnosis Start Date Code Code Sys tem Mixed hyperlipidemia 07/24/2024 [id number] SNOMED- CT Personal Care Team Section Performer Name Performer Role Active Date Inactive DEEPTHI Castillo PCP - Primary care physician 7
--- OUTSIDE RECORDS SUMMARY | 2025-01-12 13:14 | XMS_ITS ---
Author Organization Unknown Address [id number] [place] [address] [phone] Phone Care Team Providers Care Machine Tank Operator Name Role Phone ROBERTH GRAJEDA Attending Unavailable JARED LACEY Primary Unavailable Immunization [...] 208 CVX Pneumococcal conjugate PCV20 , polysaccharide [id number] conjugate, adjuvant, PF 08/23/2023 Completed 216 CVX COVID-19, mRNA, LNP-S, PF, 3 0 mcg/0.3 mL dose, wang-sucrose 02/06/2022 Completed 217 CVX COVID-19, mRNA, LNP-S, bivalent, PF, 30 mcg/0.3 mL dose 09/04/2022 Completed 300 CVX COVID-19, mRNA, LNP-S, PF, wang-sucrose, 30 mcg/0.3 mL 09/08/2024 Completed 309 CVX COVID-19, mRNA, LNP-S, PF, 5 0 mcg/0.5 mL 08/23/2023 Completed 312 CVX Results URINALYSIS w/Microscopy/C&S if indicated - Collect Date/Time: 12/16/2023 16:32 [facility] ID: [id number] [address] [place] [address], [phone] LOINC: 00798-4 Test Value Unit Reference Range Code Code System Flag UR SOURCE UNKNOWN 78981-0 LOINC COLOR YELLOW YELLOW 5778-6 LOINC CLARITY CLEAR CLEAR 72781-9 LOINC SPEC GRAVITY 1.010 1.000-1.030 5811-5 LOINC PH 5.5 5.0 - 6.5 5803-2 LOINC LEUK EST NEGATIVE NEGATIVE 5799-2 LOINC NITRATE NEGATIVE NEGATIVE PROTEIN NEGATIVE NEGATIVE 5804-0 LOINC GLUCOSE NEGATIVE NEGATIVE 80268-9 LOINC KETONES NEGATIVE NEGATIVE 22838-3 LOINC UROBILINOGEN 0.2 NEGATIVE 5818-0 LOINC BILIRUBIN NEGATIVE NEGATIVE 33826-1 LOINC BLOOD 2+ NEGATIVE 39753-8 LOINC WBC 0-2 0 - 2 72600-4 LOINC RBC 2-5 0 - 2 71170-6 LOINC EPITHELIAL RARE RARE-FEW 92883-9 LOINC BACTERIA NONE SEEN NONE SEEN 60109-1 LOINC MUCUS NONE SEEN NONE SEEN 8247-9 LOINC YEAST NOT PRESENT NOT PRESENT 00730-0 LOINC CASTS NONE SEEN 71048-6 LOINC CRYSTALS NONE SEEN 38561-7 LOINC CULTURE? NO 8251-1 LOINC DIAGNOSIS RESPIRATORY 4 PLEX COVID FLU RSV PCR - Collect Date/Time: 12/16/2023 15:55 [facility] ID: [id number] [place] [address], [phone] LOINC: 84693-8 Test Value Unit Reference Range Code Code System Flag SARS CoV2 PCR NEGATIVE FLU A PCR NEGATIVE FLU B PCR NEGATIVE RSV PCR NEGATIVE SEND TO [facility]? YES A CBC W/ DIFF - Collect Date/T joshua: 12/16/2023 15:44 [facility] ID: [id number] [address] [place], [place], [phone] LOINC: 16125-2 Test Value Unit Reference Range Code Code System Flag WBC 8.6 10^3uL L=4.8 H=10.8 RBC 4.32 10^6uL L=4.60 H=6.20 L HEMOGLOBIN 13.1 g/dL L=14.0 H=18.0 718-7 LOINC L HEMATOCRIT 39.8 VOL% L=42.0 H=52.0 4544-3 LOINC L MCV 92.1 fL L=80.0 H=94.0 MCH 30.3 pg L=27.0 H=32.0 MCHC 32.9 g/dL L=32.0 H=36.0 PLATELETS 197 10^3uL L=100 H=400 06358-5 LOINC RDW 13.3 % L=11.7 H=15.5 %GRAN L=40.0 H=70.0 90981-4 LOINC %LYMPH L=20.0 H=45.0 736-9 LOINC %MONO L=2.0 H=10.0 56516-2 LOINC %EOS L=0.0 H=6.0 713-8 LOINC %BASO L=0.0 H=3.0 706-2 LOINC #NEUT L=1.9 H=7.6 44713-2 LOINC #LYMPH L=0.9 H=4.9 52677-6 LOINC #MONO L=0.1 H=0.9 36594-5 LOINC #EOS L=0.0 H=0.6 712-0 LOINC #BASO L=0.00 H=0.10 03672-9 LOINC #IM GRANS L=0.0 H=7.0 27469-7 LOINC %IM GRANS L=0.0 H=5.0 87141-1 LOINC %NRB L=0.0 H=0.2 68939-5 LOINC #NRB L=0.000 H=0.012 84790-1 LOINC MANUAL DIFF SEE BELOW A SEG 91 % L=40 H=70 H BANDS 0 % L=0 H=6 LYMPH 7 % L=20 H=45 L MONO 2.0 % L=2.0 H=10.0 EOS 0 % L=0 H=6 713-8 LOINC BASO 0 % L=0 H=3 IM GRANS 0 % L=0 H=5 METAS 0 % L=0 H=0 MYELOS 0 % L=0 H=0 PROMYELOS 0 % L=0 H=0 BLASTS 0 % L=0 H=0 01733-3 LOINC DAPHNEY LYMPHS 0.00 % L=0.00 H=5.00 SMUDGE CELLS 0 % L=0 H=0 NRBC 0.0 % L=0.0 H=0.0 PLTS APPEAR NORMAL NEUT # 7.8 10^3uL L=1.9 H=7.6 H LYMPH # 0.6 10^3uL L=0.9 H=4.9 L MONO # 0.2 10^3uL L=0.1 H=0.9 EOS # 0.0 10^3uL L=0.0 H=0.6 712-0 LOINC BASO # 0.0 10^3uL L=0.0 H=0.1 44989-8 LOINC RBC MORPH NOT INDICATED COMPREHENSIVE METABOLIC PANE L - Collect Date/Time: 12/16/2023 15:44 [facility] ID: [id number] [address] [place], [place], [id number] LOINC: 12537-1 Test Value Unit Reference Range Code Code System Flag FASTING UNKNOWN BUN 20 mg/dL L=7 H=20 3094-0 LOINC CREATININE 0.80 mg/dL L=0.66 H=1.25 2160-0 LOINC GLUCOSE 116 mg/dL L=74 H=106 2345-7 LOINC H SODIUM 133 mmol/L L=132 H=144 2951-2 LOINC POTASSIUM 4.6 mmol/L L=3.5 H=5.1 2823-3 LOINC CHLORIDE 103 mmol/L L=98 H=107 2075-0 LOINC CO2 19.0 mmol/L L=22.0 H=30.0 2028-9 LOINC L ANION GAP 16 L=10 H=20 93883-9 LOINC OSMOLALITY 280 mOs/kG L=280 H=296 06962-7 LOINC BUN/CREAT 25.0 3097-3 LOINC CALCIUM 8.4 mg/dL L=8.3 H=10.5 82836-5 LOINC AST 31 U/L L=15 H=46 1920-8 LOINC ALT 36 U/L L=9 H=72 1742-6 LOINC ALKALINE PHOS 38 U/L L=38 H=126 6768-6 LOINC TOTAL BILI 0.3 mg/dL L=0.2 H=1.3 1975-2 LOINC ALBUMIN 4.3 G/dL L=3.5 H=5.0 1751-7 LOINC TOTAL PROTEIN 7.5 g/L L=6.3 H=8.2 2885-2 LOINC A/G RATIO 1.3 15742-9 LOINC AGE 68 65659-8 LOINC eGFR NON-AFR 103 ml/min eGFR AFR AMER 125 ml/min LIPASE - Collect Date/Time: 12/16/2023 15:44 [facility] ID: [id number] [address] [place], [place], [phone] LOINC: 3040-3 Test Value Unit Reference Range Code Code System Flag LIPASE 193 U/L L=23 H=300 3040-3 LOINC Social History Type Status Start Date End Date Code Code Syst em Smoking History Current every day smoker 447462656 SNOMED CT Sex Male Medications Medication Start Date End Date Route Frequency Dose Code Code System Medication Instructions Home Meds Aspirin 325MG Oral Tablet, Enteric Coated 08/28/2023 Unknown ORAL ONCE A DAY 325 MILLIGRAMS 936320 RxNorm TAKE 325 MILLIGRAMS ORAL ONCE A DAY Atorvastatin Calcium 40MG Oral Tablet 08/28/2023 Unknown ORAL ONCE A DAY 40 MILLIGRAMS 643145 RxNorm TAKE 40 MILLIGRAMS ORAL ONCE A DAY Cilostazol 100MG Oral Tablet 08/28/2023 Unknown ORAL TWICE A DAY 100 MILLIGRAMS 904881 RxNorm TAKE 100 MILLIGRAMS ORAL TWICE A DAY Lisinopril 20MG Oral Tablet 08/28/2023 Unknown ORAL ONCE A DAY 20 MILLIGRAMS 451248 RxNorm TAKE 20 MILLIGRAMS ORAL ONCE A DAY Metamucil Oral Capsule 08/28/2023 Unknown ORAL 1 unit(s) RxNorm TAKE 1 EACH ORAL Metoprolol Tartrate 25MG Oral Tablet 08/28/2023 Unknown ORAL TWICE A DAY 25 MILLIGRAMS 428449 RxNorm TAKE 25 MILLIGRAMS ORAL TWICE A DAY Omeprazole 40MG Oral Capsule, Delayed Release 08/28/2023 Unknown ORAL ONCE A DAY 40 MILLIGRAMS 678483 RxNorm TAKE 40 MILLIGRAMS ORAL ONCE A DAY Viagra 100MG Oral Tablet 08/28/2023 Unknown ORAL NEEDED 100 MILLIGRAMS 112563 RxNorm TAKE 100 MILLIGRAMS ORAL NEEDED Hospital [...] Code System No Known Drug Allergies Active 272078168 SNOMED-CT Plan of Treatment No Data Found Encounters Encounter Diagnosis Start Date Code Code Sys tem Infectious gastroenteritis and colitis, unspecified SNOMED-CT Personal Care Team Section Performer Name Performer Role Active Date Inactive DEEPTHI Castillo PCP - Primary care physician 7
--- OUTSIDE RECORDS SUMMARY | 2025-01-12 13:16 | XMS_ITS ---
Author Organization Unknown Address [address] [place] [phone] Phone Care Team Providers Care Leaded Glass Installer Name Role Phone FREDA Velasquez Poultry Cutter Surgeon Unavailable JORGE Cisneros Attending Unavailable PRIYA ZACARIAS CRNA Unavailable JARED LACEY Primary Unavailable Immunization Immunization [...] 208 CVX Pneumococcal conjugate PCV20 , polysaccharide [id number] conjugate, adjuvant, PF 08/23/2023 Completed 216 CVX [...] em Smoking History Current every day smoker 785272269 SNOMED CT Sex Male Vital Signs Vital Sign Value Unit Hoke Value Hoke Unit Date/Time Recent/Initial? Code Code System Body Mass Index 14.92 kg/m2 08/28/2023 10:18 Most Recent 31613 -5 LOINC Body Mass Index 32.89 kg/m2 08/07/2023 10:19 Initial 13081 -5 LOINC Systolic Blood Pressure 145 mm[Hg] 08/28/2023 10:17 Initial 8480- 6 LOINC Diastolic Blood Pressure 82 mm[Hg] 08/28/2023 10:17 Initial 8462- 4 INC Body Surface Area 1.43 m2 08/28/2023 10:18 Most Recent 3140- 1 LOINC Body Surface Area 2.12 m2 08/07/2023 10:19 Initial 3140- 1 LOINC Height 170.180 0 cm 67.00 in 08/28/2023 10:18 Most Recent 8302- 2 LOINC Height 170.180 0 cm 67.00 in 08/07/2023 10:19 Initial 8302- 2 LOINC O2 Saturation 100 % 2022 10:17 Initial 10450 -5 INC Pulse 72.0 /min 08/28/2023 10:17 Initial 8867- 4 LOINC Respiration 16 /min 08/28/20 10:17 Initial 9279- 1 LOINC Temperature 36.3 Nicolette 97.3 F 08/28/20 10:17 Initial 8310- 5 LOINC Weight 43.20 kg 95.25 lbs 08/28/2023 10:18 Most Recent 07142 -7 LOINC Weight 95.25 kg 210.00 lbs 08/07/2023 10:19 Initial 32225 -7 [facility] Medications Medication Start Date End Date Route Frequency Dose Code Code System Medication Instructions Home Meds Aspirin 325MG Oral Tablet, Enteric Coated 08/28/2023 Unknown ORAL ONCE A DAY 325 MILLIGRAMS 956776 RxNorm TAKE 325 MILLIGRAMS ORAL ONCE A DAY Atorvastatin Calcium 40MG Oral Tablet 08/28/2023 Unknown ORAL ONCE A DAY 40 MILLIGRAMS 297689 RxNorm TAKE 40 MILLIGRAMS ORAL ONCE A DAY Cilostazol 100MG Oral Tablet 08/28/2023 Unknown ORAL TWICE A DAY 100 MILLIGRAMS 011761 RxNorm TAKE 100 MILLIGRAMS ORAL TWICE A DAY Lisinopril 20MG Oral Tablet 08/28/2023 Unknown ORAL ONCE A DAY 20 MILLIGRAMS 643145 RxNorm TAKE 20 MILLIGRAMS ORAL ONCE A DAY Metamucil Oral Capsule 08/28/2023 Unknown ORAL 1 unit(s) RxNorm TAKE 1 EACH ORAL Metoprolol Tartrate 25MG Oral Tablet 08/28/2023 Unknown ORAL TWICE A DAY 25 MILLIGRAMS 193327 RxNorm TAKE 25 MILLIGRAMS ORAL TWICE A DAY Omeprazole 40MG Oral Capsule, Delayed Release 08/28/2023 Unknown ORAL ONCE A DAY 40 MILLIGRAMS 685364 RxNorm TAKE 40 MILLIGRAMS ORAL ONCE A DAY Viagra 100MG Oral Tablet 08/28/2023 Unknown ORAL NEEDED 100 MILLIGRAMS 024211 RxNorm TAKE 100 MILLIGRAMS ORAL NEEDED Hospital Discharge Instructions Should you have any questions prior to discharge, please contact a member of your healthcare team. If you have left the hospital and have any questions, please contact your primary care physician. Reason For Referral No Data Found Procedures Procedure Name Date Status Code Code Syste m Anesthesia for procedures on nerves, muscles, tendons, fascia, and bursae 08/28/2023 completed 51279 CPT Neuroplasty and/or transposi tion; ulnar nerve at elbow 08/28/2023 completed 06506 CPT Neuroplasty and/or transposi tion; ulnar nerve at elbow 08/28/2023 completed 50967 CPT APPENDECTOMY completed 05474370 SNOMEDCT Neuroplasty and/or transposi tion; median nerve at carpal tunnel; (-RT Righ 08/28/2023 completed 41853 CPT Allergies and Adverse Reactions Allergy Substance Reaction Severity Start Date Concern Status Co de Code System No Known Drug Allergies Active 793075557 SNOMED-CT Plan of Treatment No Data Found Encounters Encounter Diagnosis Start Date Code Code Sys tem Carpal tunnel syndrome, right upper limb 08/28/2023 SNOMED-CT Personal Care Team Section Performer Name Performer Role Active Date Inactive DEEPTHI Castillo PCP - Primary care physician 7
--- OUTSIDE RECORDS SUMMARY | 2025-01-12 13:16 | XMS_ITS ---
Author Organization Unknown Address [id number] [place] [phone] Phone Care Team Providers Care Utility Worker Driver Name Role Phone MATTY OBRIEN Attending Unavailable JARED LACEY Primary Unavailable Immunization [...] 208 CVX Pneumococcal conjugate PCV20 , polysaccharide [id number] conjugate, adjuvant, PF 08/23/2023 Completed 216 CVX COVID-19, mRNA, LNP-S, PF, 3 0 mcg/0.3 mL dose, wang-sucrose 02/06/2022 Completed 217 CVX COVID-19, mRNA, LNP-S, bivalent, PF, 30 mcg/0.3 mL dose 09/04/2022 Completed 300 CVX COVID-19, mRNA, LNP-S, PF, wang-sucrose, 30 mcg/0.3 mL 09/08/2024 Completed 309 CVX COVID-19, mRNA, LNP-S, PF, 5 0 mcg/0.5 mL 08/23/2023 Completed 312 CVX Results PSA-DIAGNOSTIC - Collect Gregory e/Time: 12/31/2024 15:38 [facility] ID: [id number] [address] [place], [place], [phone] LOINC: 2857-1 Test Value Unit Reference Range Code Code System Flag PSA DIAG 0.47 ng/mL L=0.00 H=4.00 2857-1 LOINC Social History Type Status Start Date End Date Code Code Syst em Smoking History Current every day smoker 188742476 SNOMED CT Sex Male Medications Medication Start Date End Date Route Frequency Dose Code Code System Medication Instructions Home Meds Aspirin 325MG Oral Tablet, Enteric Coated 08/28/2023 Unknown ORAL ONCE A DAY 325 MILLIGRAMS 164715 RxNorm TAKE 325 MILLIGRAMS ORAL ONCE A DAY Atorvastatin Calcium 40MG Oral Tablet 08/28/2023 Unknown ORAL ONCE A DAY 40 MILLIGRAMS 921396 RxNorm TAKE 40 MILLIGRAMS ORAL ONCE A DAY Cilostazol 100MG Oral Tablet 08/28/2023 Unknown ORAL TWICE A DAY 100 MILLIGRAMS 778569 RxNorm TAKE 100 MILLIGRAMS ORAL TWICE A DAY Lisinopril 20MG Oral Tablet 08/28/2023 Unknown ORAL ONCE A DAY 20 MILLIGRAMS 130256 RxNorm TAKE 20 MILLIGRAMS ORAL ONCE A DAY Metamucil Oral Capsule 08/28/2023 Unknown ORAL 1 unit(s) RxNorm TAKE 1 EACH ORAL Metoprolol Tartrate 25MG Oral Tablet 08/28/2023 Unknown ORAL TWICE A DAY 25 MILLIGRAMS 309213 RxNorm TAKE 25 MILLIGRAMS ORAL TWICE A DAY Omeprazole 40MG Oral Capsule, Delayed Release 08/28/2023 Unknown ORAL ONCE A DAY 40 MILLIGRAMS 428067 RxNorm TAKE 40 MILLIGRAMS ORAL ONCE A DAY Viagra 100MG Oral Tablet 08/28/2023 Unknown ORAL NEEDED 100 MILLIGRAMS 088175 RxNorm TAKE 100 MILLIGRAMS ORAL NEEDED Hospital [...] Code System No Known Drug Allergies Active 435909388 SNOMED-CT Plan of Treatment No Data Found Encounters Encounter Diagnosis Start Date Code Code Sys tem Benign prostatic hyperplasia 12/31/2024 755568383 SNOMED-CT Personal Care Team Section Performer Name Performer Role Active Date Inactive DEEPTHI Castillo PCP - Primary care physician 7
== END 2025-01-12 11:07 | disposition home or self-care (01) ==
LOC: CHSLAB 11:09
PROVIDERS: PCP Family Medicine; Visit Provider Nurse Practitioner Family
DX: M17.0 Bilateral primary osteoarthritis of knee (principal); M25.562 Pain in left knee; M25.561 Pain in right knee; M25.462 Effusion, left knee
CPT/HCPCS: 73560

== ENCOUNTER 2025-07-22 11:56 | Outpatient (CLI) | payer OTHER, SELFPAY ==
[2025-07-22 12:08] LABS: Add Urine Microscopic? NO; Appearance Urine Clear (Clear); Glucose Urine UA Negative (Negative); Leukocyte Esterase Ur Negative LEU/UL (Negative); Nitrate Urine Negative (Negative); Specific Grav Ur 1.020 (1.010-1.020)
--- OUTSIDE RECORDS SUMMARY | 2025-07-22 12:18 | XMS_ITS | Encounter Summary ---
Author Organization [facility] Address [facility] [place] [address] Care Team Providers Care Software Validation Engineer Name Role Phone RayDebbie ortegaken MCMANUS Primary Care Provider [phone] Mg Childers MD Unavailable [phone] Hillary Arnold MD Unavailable Encounter Details Date Type Department Care Team (Late st Contact Info) Description 01/14/2025 Cybersourcet Message Enc [facility] [address] [facility] [address] [place] [address] Cheri Soto PA [address] [place] [address] [phone] Visit Follow Up Social History Tobacco Use [...] on file Sexual Orientation Not on file documented as of this encounter Plan of Treatment Upcoming Encounters Date Type Department Care Team (Late Contact Info) Description 09/02/2025 1:00 PM CASE TECHNICIAN Appointment [facility] [address] [facility] [place] [address] Hillary Arnold MD [address] [place], [place] [address] 09/02/2025 2:00 PM CASE TECHNICIAN Appointment [facility] [address] [facility] [place] [address] Hillary Arnold MD [address] [place], [place] [address] 09/09/2025 2:15 PM CASE TECHNICIAN Office Visit [facility] [address] [facility] [place] [phone] Hillary Arnold MD [address] [place], [place] [phone] documented as of this encounter Visit Diagnoses Not on filedocumented in this encounter Care Teams Software Validation Engineer Relationship Specialty Start Date End Date Pritesh Roberson DO [address] [place] [address] PCP - General FAMILY PRACTICE 12/22/20 Mg Childers MD [address] [place] [phone] Consulting Physician ORTHOPAEDIC SURGERY 08/09/23 Hillary Arnold MD [address] [place] [address] Consulting Physician CARDIOVASCULAR DISEASE 04/27/24 documented as of this encounter
--- OUTSIDE RECORDS SUMMARY | 2025-07-22 12:19 | XMS_ITS | Clinical Summary ---
Author Organization [facility] Address [facility] [place] [address] Care Team Providers Care Biomechanical Engineer Name Role Phone Kaorl Pritesh MCMANUS Primary Care Provider [phone] Childers MD Unavailable [phone] Hillary Arnold MD Unavailable Allergies No [...] Diagnosed Date Coronary artery disease invo lving [place] coronary artery of [place] heart without angina pectoris 07/01/2021 Overview (01/26/2022): [...] daily. NSTEMI (non-ST elevated myoc ardial infarction) ([facility]) 05/28/2021 Overview (01/26/2022): Last Assessment & Plan: [...] 0 05/1972 - 05/2022 Smokeless Tobacco: Never Tobacco Cessation:Counseling Given: Not Answered Alcohol Use Standard Drinks/Week Comments Not Currently [...] CDT Inhaled Oxygen Concentration - - Weight 95.3 kg (210 lb) 01/14/2025 1:28 PM CDT Height 170.2 cm (5' 7) 01/14/2025 1:28 PM CDT Body Mass Index 32.89 01/14/2025 1:28 PM CDT Plan of Treatment Upcoming Encounters Date Type Department Care Team (Late st Contact Info) Description 09/02/2025 1:00 PM [address]NAGER ANALYSIS Appointment [facility] [place] [address] Hillary Arnold MD [address] [place] [address] 09/02/2025 2:00 PM [address] ANALYSIS [facility]oint[address] [facility] [place] [address] Hillary Arnold MD [address] [place] [address] 09/09/2025 2:15 PM MANAGER ANALYSIS Office Visit [facility] [place] [phone] Hillary Arnold MD [address] [place], [place] [phone] Health Maintenance Due Date Last Done Comments ASCVD LDL 1957 ASCVD Statin 1957 Colorectal Cancer Screening Colonoscopy (10 Years) 1957 Hepatitis C 1975 DTaP, Tdap and Td Vaccines (1 - Tdap) 1976 Lung Cancer Screening 2007 RSV Immunization or 60+ Years (1 - Risk 60-74 years 1-dose series) 2017 AAA SCREENING 2022 COVID-19 Vaccine ( season) 2025 09/08/2024, 08/23/2023, 09/04/2022, Additional history exists Zoster Vaccines Completed 02/06/2022, 09/19/2021 Pneumococcal Vaccine: 50+ Years Completed 08/23/2023, 10/01/2019 Meningococcal B Vaccine Aged Out No l onger eligible based on patient's age to complete this topic Meningococcal Vaccine Aged Out No ginny rowan eligible based on patient's age to complete this topic RSV Immunizations Under 20 Months Aged Out No longer eligible based on patient's age to complete this topic Insurance [employer] [facility] MEDICARE PART A Member Subscriber Plan / Payer (Ef fective 2022-Present) Name:Steve Espinoza Relation to Subscriber:Self Name:Steve Espinoza Payer ID:Not on file Group ID:Not on file Type:Indemniyasmin Address: [facility] [address] [place] [id number] Care Teams Biomechanical Engineer Relationship Specialty Start Date End Date Pritesh Roberson DO [address] [place] [address] PCP - General FAMILY PRACTICE 12/22/20 Mg Childers MD [address] [place] [phone] Consulting Physician ORTHOPAEDIC SURGERY 08/09/23 Hillary Arnold MD [address] [place] [address] Consulting Physician CARDIOVASCULAR DISEASE 04/27/24
--- OUTSIDE RECORDS SUMMARY | 2025-07-22 12:19 | XMS_ITS | Clinical Summary ---
Author Organization [facility] Address [address] [place] [address] Care Team Providers Care Sap Data Architect Name Role Phone Pritesh Robersno DO Primary Care Provider Pritesh Roberson DO Unavailable No, Physician Unavailable Nahed Melendez MD Unavailable [phone] Allergies No known active allergies Medications lisinopriL [...] Diagnosed Date Coronary artery disease invo lving [place] coronary artery of [place] heart without angina pectoris 07/01/2021 Assessment & Plan (09/30/2021 4:08 PM BI ANALYST): No symptoms of myocardial ischemia. He is [...] 05/28/2021 Assessment & Plan (09/30/2021 4:09 PM BI ANALYST): Blood pressure is well controlled on lisinopril [...] 05/28/2021 Assessment & Plan (09/30/2021 4:09 PM BI ANALYST): Continue atorvastatin 40 mg daily. Assessment & [...] on file Legal Sex Male 8:30 AM BI ANALYST Gender Identity Male 07/01/2021 12:16 PM CDT Sexual Orientation Not on file Obstetrics History Last Filed Vital Signs Vital Sign Reading Time Taken Comments Blood Pressure 112/64 09/30/2021 12:03 PM BI ANALYST Pulse 71 09/30/2021 12:03 PM BI ANALYST Temperature 36.7 C (98 F) 05/31/2021 12:40 PM CDT Respiratory Rate 18 05/31/2021 12:40 PM CDT Oxygen Saturation 98% 09/30/2021 12:03 PM BI ANALYST Inhaled Oxygen Concentration - - Weight 97.1 kg (214 lb) 09/30/2021 12:03 PM BI ANALYST Height 172.7 cm (5' 8) 09/30/2021 12:03 PM BI ANALYST Body Mass Index 32.54 09/30/2021 12:03 PM BI ANALYST Plan of Treatment Not on file Medical Devices Implanted Type Area Fisher Eel Device Identifier Shelf Expiration Date Model / Serial / Lot [employer] [id number] Synergy Xd Monorail 3mm 16mm 144cm Delivery System 1 Access Port - [id number] - [id number] Implanted:Qty: 1 on 05/30/2021 by Alexander Odom MD at [facility] Stent N/A: Coronary [employer] 03/07/2023 [id number] / [id number] / [id number] Description:[facility] Insurance [facility] [id number] [facility] [id number] Advance Directives For more information, please contact: [phone] Documents on File Type Date Recorded Patient Head Screen Worker Expl anation ADVANCE DIRECTIVE 06/01/2021 12:21 PM Bess r of Inspector [employer] * Full Code (Latest Code Status on File) Date Activated Date Inactivated Comments 05/30/2021 9:33 AM 05/31/2021 6:47 PM * Full Code Date Activated Date Inactivated Comments 05/28/2021 6:56 PM 05/30/2021 9:33 AM Care Teams Sap Data Architect Relationship Specialty Start Date End Date Pritesh Roberson DO [address] [place] [address] PCP - General Family Medicine 06/01/21 Pritesh Roberson DO [address] [place] [address] Family Medicine 06/01/21 No, Physician 05/31/21 Nahed Melendez MD [address] [facility] [address] [place] [address] Consulting Physician Cardiology 05/31/21
--- OUTSIDE RECORDS SUMMARY | 2025-07-22 12:19 | XMS_ITS | Encounter Summary ---
Author Organization [facility] Address Formerly [facility] [place] [address] Care Team Providers Care Lab Engineer Name Role Phone Pritesh Roberson DO Primary Care Provider [phone] Zena Castillo MD Unavailable Unavailabl Mg Wills MD Unavailable [phone] Hillary Arnold MD Unavailable Encounter Details Date Type Department Care Team (Late st Contact Info) Description 11/07/2021 Dealentrahart Message Enc [facility] [address] [facility] [address] [place] [id number] Juana Lechuga, [facility]- Visit Follow Up Social History Tobacco Use [...] COVID-19? No / Unsure 11/09/2021 10:16 AM BOAT DESIGNER documented as of this encounter Plan of Treatment Upcoming Encounters Date Type Department Care Team (Late Contact Info) Description 09/02/2025 1:00 PM BOAT DESIGNER Appointment [facility] [address] [facility] [place] [address] Hillary Arnold MD [address] [place] [id number] 09/02/2025 2:00 PM BOAT DESIGNER Appointment [address] [place] [address] Hillary Arnold MD [address] [place] [address] 09/09/2025 2:15 PM BOAT DESIGNER Office Visit [facility]-[address] [place] [phone] Hillary Arnold MD [address] [place] [address] documented as of this encounter Visit Diagnoses Not on filedocumented in this encounter Care Teams Lab Engineer Relationship Specialty Start Date End Date Pritesh Roberson DO [address] [place] [address] PCP - General FAMILY PRACTICE 12/22/20 Zena Castillo MD [address] [place] [address] Consulting Physician CARDIOVASCULAR DISEASE 01/02/22 Mg Childers MD [address] [place] [phone] Consulting Physician ORTHOPAEDIC SURGERY 08/09/23 Hillary Arnold MD [address] [place] [address] Consulting Physician CARDIOVASCULAR DISEASE 04/27/24 documented as of this encounter
[2025-07-22 13:24] LABS: Prostate Specific Antigen 0.4 ng/mL (< OR = 4.0)
== END 2025-07-22 11:57 | disposition home or self-care (01) ==
LOC: CHSLAB 11:57
PROVIDERS: PCP Nurse Practitioner Family; Visit Provider Nurse Practitioner Family
DX: R39.198 Other difficulties with micturition (principal); Z12.5 Encounter for screening for malignant neoplasm of prostate
CPT/HCPCS: 36415; 81003; 84153; G0103